=== PATIENT | female | born 1955 | race Caucasian/White ===

== ENCOUNTER → 2024-04-02 11:08 | Outpatient (REF) | payer MEDICARE, OTHER, SELFPAY | LOC: HWRCS 11:08 | PROVIDERS: ATTENDING PHYSICIAN Internal Medicine Cardiovascular Disease; FAMILY PHYSICIAN Family Medicine | DX: R07.9 Chest pain, unspecified (principal) | CPT/HCPCS: 93306 ==

== ENCOUNTER 2024-10-07 08:59 | Emergency (ER) | payer MEDICARE, OTHER, SELFPAY ==
[2024-10-07 09:00] VITALS: BP 150/95
--- NOTE | 2024-10-07 09:24 | ED.GENMED ---
History of Present Illness
General
Chief Complaint: Urinary Symptoms
Time Seen by Provider: 10/07/24 09:05
History of Present Illness
History of Present Illness:
see MDM
Past History
Past History
ED Past Medical History: Hypothyroidism
ED Past Surgical History: Gynecological
Social History
Tobacco: Former smoker
Alcohol: None
Drug: None
Phy Exam
Physical Exam
Physical Exam:
GENERAL: Alert , in no apparent distress
EYE: pupils equal and reactive
NECK: Supple
ENT: o/p clr, mmm.
CARDIAC: Regular rate and rhythm .
LUNGS: Clear breath sounds bilaterally, no acute respiratory distress, no wheezes/rales/rhonchi
ABDOMEN: Soft, without focal tenderness, no r/g, no cvat, normal bowel sounds
No CVA tenderness
NEUROLOGICAL: Alert and oriented, no focal neuro deficits
SKIN: Warm and dry, skin intact.
MUSCULOSKELETAL: No edema, well perfused. neg louis's sign
PSYCH: Normal and appropriate interaction.
Course
Orders/Labs/Results
Orders:
Orders
10/07/24 09:21
CT Abd/pel Without Iv Or Oral Urgent
Comment:
Reason For Exam: hematuria
10/07/24 09:22
0.9% Sodium Chloride 1000 ml [Nss] 1,000 ml IV BOLUS
10/07/24 09:32
Complete Blood Count/With Diff Urgent
Comprehensive Metabolic Panel Urgent
Creatine Phosphokinase Urgent
Comment: ADD
Lipase Urgent
PTT Urgent
Prothrombin Time Urgent
10/07/24 09:39
Add On- LAB Urgent
Tests Added?: cpk
10/07/24 10:42
Urinalysis Reflex To Culture Urgent
Date Specimen was Collected: 10/07/24
Time Specimen was Collected: 10:39
Urine Microscopic Reflex Cult Urgent
Urine Culture Urgent
SHARDA Source: U
Specimen Description:
Date Specimen was Collected: 10/07/24
Time Specimen was Collected: 10:39
10/07/24 11:29
Tamsulosin [Flomax] 0.4 mg PO NOW STA
Abnormal Lab Results
10/07/24 10/07/24
09:32 10:42
MPV 11.3 H fL
(7.4-10.4)
Carbon Dioxide 33 H mmol/L
(22-30)
Glucose 100 H mg/dl
(70-99)
Ur Occult Blood Reflex 4+ A
(Negative)
Leukocyte Esterase Rfl 1+ A
(Negative)
Urine RBC 50-60 A /HPF
(0-2)
Urine WBC (Reflex) 11-15 A /HPF
(0-5)
Urine Bacteria (Reflex) Few A
(Negative)
10/07/24 09:32
10/07/24 09:32
Vital Signs
Initial and Last Documented VS:
Initial Vital Signs
Temp Pulse Resp BP Pulse Ox
36.4 C 98 16 150/95 98
10/07/24 09:00 10/07/24 09:00 10/07/24 09:00 10/07/24 09:00 10/07/24 09:00
Last Documented Vital Signs
Temp Pulse Resp BP Pulse Ox
36.4 C 81 18 160/95 98
10/07/24 09:00 10/07/24 10:38 10/07/24 10:38 10/07/24 10:38 10/07/24 10:38
MDM/Problems Addressed
Differential Diagnosis Includes:
see MDM
MDM/Problems Addressed:
Note:
CHIEF COMPLAINT(S)
Hematuria.
HISTORY OF PRESENT ILLNESS
The patient is [facility] 69[facility], uti, ovarian cysts, IBS, anxiety, breast CA who presents with complaints of painless hematuria 2 day sago, with urine discoloration progressing from pink to the color of [employer] this
morning. She reports filling a glass with this discolored urine. She started drinking a lot of fluids, hoping for improvement, but did not observe any change. She denies experiencing back pain, abdominal pain, urinary urgency, or fever. The patient
also notes a recent bout of coughing that then she had R sided back discomfort for a few days before the hematuria started. Her appetite remains normal without any weight loss. She mentions a recent course of antibiotics two weeks ago for an ear
infection but is not currently experiencing any pain similar to kidney stones. There is no history of recent surgeries affecting her abdomen, and she denies being on blood thinners. She has not noticed any blood clots in her urine.
PAST MEDICAL AND SURIGICAL HISTORY
The patient mentions antibiotics for an ear infection two weeks prior. No history of abdominal surgeries reported. She has not had kidney stones before.
SOCIAL [employer]MIN[employer]S AFFECTING HEALTH
The patient identified as a nurse, indicating healthcare-related work experience.
PHYSICAL EXAM
- Abdomen: No reported tenderness on palpation.
- Nursing notes reviewed and vital signs reviewed.
PLAN
- The patient will undergo an abdominal scan to assess the condition thoroughly.
- A urine sample is requested to be provided for analysis.
DIFFERENTIAL DIAGNOSIS
The Differential Diagnosis includes, in no particular order and is not limited to:
1. Urinary Tract Infection (UTI)
2. Kidney Stones
3. Hematuria secondary to medication side effects
4. Bladder Cancer
5. Glomerulonephritis
6. Pyelonephritis
7. Interstitial Cystitis
8. Prostate issues in females, such as urethral diverticulum
9. Trauma-induced Hematuria
10. Benign prostatic hyperplasia or urethral strictures (less common in females but possible diagnosis)
10/07/24 - 11:25
Patient has a 1mm stone in the right kidney, currently situated midway in the right ureter. An incidental finding revealed a small adrenal mass and an exophytic liver mass, which has calcifications and was previously classified as a cyst. Liver
markers are normal, suggesting the mass is likely benign, but an MRI is recommended for further evaluation. Patient should follow up with Dr. romero. If the 6mm kidney stone does not pass on its own, further intervention may be needed. Patient was
advised to use a strainer when urinating and report if symptoms like fever, vomiting, or increased pain occur. Flowmax has been prescribed to aid in passing the stone.
note that pt's MICRO UA had some bacteria and wbc though it appears contaminated
so i called her to notify her i woul dbe covering with abx, cefdinir
i let dr romero know as well, they will get her f/u appt
*Pulse Oximetry
SaO2: 98
Oxygen Mode of Delivery: Room air
Patient hypoxic: no (98)
*Critical Care Note
Total Time (30-74mins, 75-104mins- exclusive of procedures): Not Applicable
ED Attending Note
-
Portions of this chart may have been created with voice recognition software.� Occasional wrong word or��sound alike� substitutions may have occurred due to the inherent limitations of voice recognition software.
Discharge Plan
Departure
Patient Disposition: Home (Routine Discharge)
Date of Disposition: 10/07/24
Time of Disposition: 11:26
Patient with high blood pressure during this ER visit?: Yes
Condition: Fair
Covid-19: Not Applicable
Discharge Problem:
Ureterolithiasis
Instructions: Kidney stones in adults, BLOOD PRESSURE
Prescriptions:
New
tamsulosin [Flomax] 0.4 mg capsule
0.4 mg PO DAILY Qty: 7 0RF
cefdinir 300 mg capsule
300 mg PO BID Qty: 14 0RF
No Action
venlafaxine [Effexor] 75 MG tablet
75 mg PO DAILY
alprazolam 0.5 MG tablet
0.5 mg PO Q6HPRN PRN (Reason: anxiety)
zolpidem 10 MG tablet
10 mg PO HS
rosuvastatin 5 MG tablet
5 mg PO QPM
levothyroxine 75 MCG capsule
75 mcg PO DAILY
Referrals:
Mitchell Woodward DO [Family Provider, [facility]] - Follow up in 5-7 days
Activity Restrictions/Additional Instructions:
YOU HAVE A KIDNEY STONE [address] YOUR R URETER
YOUR KIDNEY FUNCTION WAS NORMAL
YOUR URINE HAD NO SIGN OF INFECTION
TAKE FLOMAX ONCE A DAY UNTIL YOU PASS THE STONE
PEE THROUGH THE STRAINER
RETURN FOR: SEVERE PAIN, FEVER,VOMITING, ETC
OTHERWISE FOLLOW UP WITH DR. ROMERO
I TOLD HIM, SO HE IS AWARE
Interventions
Interventions:
*Risk Screen - Suicide Last Done: 10/07/24 09:00
*Nursing Disposition Last Done: 10/07/24 12:01
ED-Female Genitourinary Assessment Last Done: 10/07/24 09:24
Discharge Date and Time
Discharge Date/Time: 10/07/24 12:02
Print Language: MACANESE
[2024-10-07] MEDS: NSS 1000 IV (09:33)
[2024-10-07 10:01] LABS: Hematocrit 44.0 % (37.0-47.0); Hemoglobin 14.5 g/dL (12.0-16.0); Mean Corp Hgb Conc. 33.0 g/dL (33.0-37.0); Mean Corpuscular Volume 87.0 fL (81.0-99.0); Nucleated Red Blood Cells % 0 %; Platelet Count 169 10^3/uL (130-400); Red Cell Dist. Width 13.0 % (11.5-14.5)
[2024-10-07 10:08] LABS: INR 1.00; PT 13.5 Sec (11.4-14.6)
[2024-10-07 10:09] LABS: APTT 32.3 Sec (23.4-35.0)
[2024-10-07 10:11] LABS: ALT (SGPT) 16 U/L (0-35); AST (SGOT) 19 U/L (14-36); Albumin 4.2 g/dl (3.5-5.0); Alkaline Phosphatase 91 U/L (38-126); Blood Urea Nitrogen 13 mg/dl (7-17); Calcium 9.4 mg/dl (8.4-10.2); Carbon Dioxide 33 mmol/L (22-30); Chloride 105 mmol/L (98-107); Glucose 100 mg/dl (70-99); Lipase 80 U/L (23-300); Potassium 3.7 mmol/L (3.5-5.1); Sodium 141 mmol/L (135-145); Total Protein 6.9 g/dl (6.3-8.2); eGFR > 60.00
[2024-10-07 10:38] VITALS: BP 160/95
[2024-10-07 10:56] LABS: Urine Character Clear (Clear)
[2024-10-07] MEDS: FLOMAX 0.4 MG PO (11:39)
[2024-10-07 11:51] LABS: Urine Red Blood Cell 50-60 /HPF (0-2)
== END 2024-10-07 12:02 | disposition home or self-care (01) ==
LOC: EMR 08:59
PROVIDERS: Physician Assistant; EMERGENCY PHYSICIAN Emergency Medicine; FAMILY PHYSICIAN Family Medicine
DX: N20.2 Calculus of kidney with calculus of ureter (principal); Z87.442 Personal history of urinary calculi; E03.9 Hypothyroidism, unspecified; K58.9 Irritable bowel syndrome, unspecified; F41.9 Anxiety disorder, unspecified; Z87.440 Personal history of urinary (tract) infections; Z85.3 Personal history of malignant neoplasm of breast; Z87.891 Personal history of nicotine dependence
CPT/HCPCS: 99284; 96360; 74176; 80053; 81003; 81015; 82550; 83690; 85025; 85610; 85730; 87086

== ENCOUNTER → 2024-10-15 11:49 | Outpatient (REF) | payer MEDICARE, OTHER, SELFPAY | LOC: RAD 11:49 | PROVIDERS: ATTENDING PHYSICIAN Specialist; FAMILY PHYSICIAN Family Medicine | DX: N20.1 Calculus of ureter (principal) | CPT/HCPCS: 74018 ==

== ENCOUNTER → 2024-10-28 12:32 | Outpatient (REF) | payer MEDICARE, OTHER, SELFPAY | LOC: RAD 12:32 | PROVIDERS: ATTENDING PHYSICIAN Specialist; FAMILY PHYSICIAN Family Medicine | DX: N20.1 Calculus of ureter (principal) | CPT/HCPCS: 74176 ==

== ENCOUNTER → 2024-11-07 12:07 | Outpatient (REF) | payer MEDICARE, OTHER, SELFPAY ==
[2024-11-07 15:59] LABS: Blood Urea Nitrogen 13 mg/dl (7-17); Calcium 9.6 mg/dl (8.4-10.2); Carbon Dioxide 31 mmol/L (22-30); Chloride 104 mmol/L (98-107); Glucose 92 mg/dl (70-99); Potassium 3.8 mmol/L (3.5-5.1); Sodium 139 mmol/L (135-145); eGFR > 60.00
== END ==
LOC: HWLAB 12:07
PROVIDERS: ATTENDING PHYSICIAN Specialist; FAMILY PHYSICIAN Family Medicine
DX: N20.1 Calculus of ureter (principal)
CPT/HCPCS: 80048

== ENCOUNTER → 2024-12-08 12:49 | Outpatient (REF) | payer MEDICARE, OTHER, SELFPAY | LOC: SDSPAT 12:49 | PROVIDERS: ATTENDING PHYSICIAN Specialist; FAMILY PHYSICIAN Family Medicine | DX: N20.0 Calculus of kidney (principal); Z01.818 Encounter for other preprocedural examination | CPT/HCPCS: 93005 ==

== ENCOUNTER 2024-12-18 06:39 | Day surgery (SDC) | payer MEDICARE, OTHER, SELFPAY ==
[2024-12-08 13:57] VITALS: BMI 28.7
[2024-12-18] VITALS (7 sets, daily range): BP systolic 105–148; BP diastolic 69–98; BMI 28.7
[2024-12-18] MEDS: NORMOSOL-R/PLASMALYTE-A 1000 IV (12:46)
[2024-12-18] MEDS: TYLENOL 650 MG PO (14:25)
== END 2024-12-18 15:02 | disposition home or self-care (01) ==
LOC: SDS 06:39
PROVIDERS: ATTENDING PHYSICIAN Specialist; FAMILY PHYSICIAN Family Medicine
DX: Z87.442 Personal history of urinary calculi (principal)
CPT/HCPCS: 52351; 76000; C1894

== ENCOUNTER → 2025-01-01 13:43 | Outpatient (REF) | payer MEDICARE, OTHER, SELFPAY ==
[2025-01-01 16:40] LABS: Urine Character Clear (Clear)
[2025-01-01 16:56] LABS: Urine Red Blood Cell 30-40 /HPF (0-2); Urine Squamous Cell 0-2 /LPF (Few)
== END ==
LOC: HWLAB 13:43
PROVIDERS: ATTENDING PHYSICIAN Specialist; FAMILY PHYSICIAN Family Medicine
DX: R31.29 Other microscopic hematuria (principal)
CPT/HCPCS: 81003; 81015